=== PATIENT | male | born 1950 | race Caucasian/White ===

== ENCOUNTER 2019-02-26 17:28 | Observation (INO) | payer MEDICARE ==
[~2019-02-26] VITALS: Ht 185.4 cm; Wt 113.4 kg
[2019-02-26] MEDS ORDERED: SODIUM CHLORIDE 0.9% 1000ML 1,000 ML IV SCH (18:00)
[2019-02-26 18:53] LABS: BASOPHILS # (AUTO) 0.1 (0.0-0.1); BASOPHILS % 0.7 % (0.0-1.0); EOSINOPHILS # (AUTO) 0.2 (0.0-0.4); EOSINOPHILS % 2.5 % (0.0-6.0); HEMATOCRIT 44.5 % (38.2-49.6); HEMOGLOBIN 15.5 g/dL (14.0-18.0); LYMPHOCYTES # (AUTO) 2.6 (1.0-3.2); LYMPHOCYTES % 36.1 % (18.0-39.1); MEAN CORPUSCULAR HEMOGLOBIN 29.5 pg (28-32); MEAN CORPUSCULAR HGB CONC 34.8 g/dL (31-35); MEAN CORPUSCULAR VOLUME 84.6 fL (81-99); MONOCYTES # (AUTO) 0.6 (0.2-0.8); MONOCYTES % 7.7 % (4.4-11.3); NEUTROPHILS # (AUTO) 3.8 (2.1-6.9); NEUTROPHILS % 52.4 % (38.7-80.0); PLATELET COUNT 199 x10e3/uL (140-360); RED BLOOD COUNT 5.26 x10e6/uL (4.3-5.7); RED CELL DISTRIBUTION WIDTH 12.5 % (11.7-14.4)
--- NOTE | 2019-02-26 18:53 | Diagnostic Imaging Report ---
Examination: Single AP view of the chest. COMPARISON: None. INDICATION: Chest pain DISCUSSION: Lines/tubes: None. Lungs: The lungs are well inflated and clear. No pneumonia or pulmonary edema. Pleura: No pleural effusion or pneumothorax. Heart and mediastinum: The heart and the mediastinum are unremarkable. Bones and soft tissues: No acute bony abnormalities. IMPRESSION: 1. No acute cardiopulmonary abnormalities. Signed by: Dr. Tahir Matthews M.D. on 02/26/2019 6:49 PM
[2019-02-26 18:57] LABS: BILIRUBIN,URINE NEGATIVE (NEGATIVE); CLARITY,URINE SL CLOUDY (CLEAR); COLOR,URINE YELLOW (YELLOW); LEUKOCYTE ESTERASE ,URINE NEGATIVE (NEGATIVE); NITRITE,URINE NEGATIVE (NEGATIVE); PROTEIN,URINE DIPSTICK NEGATIVE (NEGATIVE); URINE UROBILINOGEN 0.2 mg/dL (0.2 - 1)
[2019-02-26 19:03] LABS: KETONES,URINE 2+ (NEGATIVE)
[2019-02-26 19:20] LABS: ALBUMIN 3.6 g/dL (3.5-5.0); CALCIUM 9.6 mg/dL (8.4-10.2); CREATININE, SERUM 1.42 mg/dL (0.72-1.25)
[2019-02-26 19:27] LABS: CREATINE KINASE MB 1.1 ng/mL (0-5.0)
[2019-02-26 19:44] LABS: INR 0.83; PROTHROMBIN TIME 11.9 seconds (11.9-14.5)
[2019-02-26 19:45] LABS: PARTIAL THROMBOPLASTIN TIME 26.4 seconds (23.8-35.5)
[2019-02-26] MEDS ORDERED: INSULIN REGULAR, HUMAN 100 UNIT/1 ML 3ML VIAL IV ONE (20:00)
[2019-02-26] MEDS ORDERED: ONDANSETRON HCL INJ 2MG/ML 2ML 2 MG/ML VIAL IV PRN (20:00)
[2019-02-26] MEDS ORDERED: DEXTROSE 50% SYRINGE 50 ML IV PRN (20:00)
[2019-02-26] MEDS ORDERED: INSULIN LISPRO 100 UNIT/1 ML 3ML VIAL SQ ONE (20:00)
[2019-02-26] MEDS ORDERED: SODIUM CHLORIDE 0.9% 1000ML 1,000 ML IV STA (20:05)
[2019-02-26] MEDS ORDERED: INSULIN LISPRO 100 UNIT/1 ML 3ML VIAL SQ SCH (21:00)
[2019-02-26] MEDS: SODIUM CHLORIDE 0.9% 1000ML 1,000 ML IV SCH (21:29)
--- OUTSIDE RECORDS SUMMARY | 2019-02-26 22:13 | XMS REPORT ---
Author Author [facility] Address Unknown Phone Unavailable Care Team Providers Care Flight Test Engineer Name Role Phone Tatianna MUNOZ Unavailable Unavailable Problems This patient has no known problems. Allergies, Adverse Reactions, Alerts This patient has no known allergies or adverse reactions. Medications This patient has no known medications. Results Test Description Test Time Test Comments Text Results Atomic Results Result Comments CHEST SINGLE (NOT PORTABLE) 2019-02-26 18:49:00 [facility] [address] [place] [address] Patient Name: REINIER GALDAMEZMerlyn Ren MR #: [id number] : 1950 Age/Sex: 68/M Req #: [id number] Adm Physician: Ordered by: ROBERT MUNOZ MD Report #: [id number] Location: ER Room/Bed: Procedure: [id number] DX/CHEST SINGLE (NOT PORTABLE) Exam Date: 02/26/19 Exam Time: 1840 REPORT STATUS: Signed Examination: Single AP view of the chest. CO MPARISON: None. INDICATION: Chest pain DISCUSSION: Lines/tubes: None. Lungs: The lungs are well inflated and clear. No pneumonia or pulmonary edema. Pleura: No pleural effusion or pneumothorax. Heart and mediastinum: The heart and the mediastinum are unremarkable. Bones and soft tissues: No acute bony abnormalities. IMPRESSION: 1. No acute cardiopulmonary abnormalities. Signed by: Dr. Nicole Liu M.D. on 02/26/2019 6:49 PM Dictated By: NICOLE LIU MD 46 Transcribed By: MANISHA on 02/26/191848 COPY TO: ROBERT MUNOZ MD
[2019-02-26 22:14] VITALS: BP 131/98
[2019-02-26 22:15] VITALS: BP 131/98
--- NOTE | 2019-02-26 22:15 | NUR ---
RECEIVED PATIENT FROM ED AT THIS TIME. PATIENT ARRIVED VIA WHEELCHAIR, AMBULATED INDEPENDENTLY TO BED. A&OX3. LUNG SOUNDS CLEAR. BOWEL SOUNDS ACTIVE. NO EDEMA NOTED. L HAND 20G IV ASYMPTOMATIC, INTACT, AND PATENT, NS RUNNING AT 125 ML/HR. AT BEDSIDE. VITALS STABLE. BED LOCKED IN LOWEST POSITION, SIDE RAILS UPX2, CALL LIGHT IN REACH.
[2019-02-26] MEDS ORDERED: GABAPENTIN300 MG PO (23:05)
[2019-02-26] MEDS ORDERED: LEVOTHYROXINE75 MCG PO (23:05)
[2019-02-26] MEDS ORDERED: FLOMAX0.4 MG PO (23:05)
[2019-02-26] MEDS ORDERED: FINASTERIDE5 MG PO (23:05)
[2019-02-27] VITALS (8 sets, daily range): BP systolic 99–141; BP diastolic 51–72
[2019-02-27 02:22] LABS: CREATINE KINASE 47 IU/L (30-200)
[2019-02-27 05:27] LABS: BASOPHILS # (AUTO) 0.1 (0.0-0.1); EOSINOPHILS # (AUTO) 0.3 (0.0-0.4); EOSINOPHILS % 5.1 % (0.0-6.0); HEMOGLOBIN 12.9 g/dL (14.0-18.0); LYMPHOCYTES # (AUTO) 2.9 (1.0-3.2); LYMPHOCYTES % 46.7 % (18.0-39.1); MEAN CORPUSCULAR HEMOGLOBIN 30.2 pg (28-32); MEAN CORPUSCULAR HGB CONC 34.9 g/dL (31-35); MEAN CORPUSCULAR VOLUME 86.7 fL (81-99); MONOCYTES # (AUTO) 0.5 (0.2-0.8); MONOCYTES % 8.4 % (4.4-11.3); NEUTROPHILS # (AUTO) 2.4 (2.1-6.9); NEUTROPHILS % 38.2 % (38.7-80.0); PLATELET COUNT 169 x10e3/uL (140-360); RED BLOOD COUNT 4.27 x10e6/uL (4.3-5.7); RED CELL DISTRIBUTION WIDTH 12.7 % (11.7-14.4)
[2019-02-27 05:51] LABS: CREATINE KINASE MB 0.9 ng/mL (0-5.0)
[2019-02-27 06:09] LABS: ALANINE AMINOTRANSFERASE 20 IU/L (0-55); ALBUMIN 2.7 g/dL (3.5-5.0); ALBUMIN/GLOBULIN RATIO 1.1 (0.8-2.0); ALKALINE PHOSPHATASE 69 IU/L (40-150); ANION GAP 12.5 mmol/L (8-16); BLOOD UREA NITROGEN 12 mg/dL (7-26); BUN/CREATININE RATIO 11 (6-25); CARBON DIOXIDE 22 mmol/L (22-29); CHLORIDE 104 mmol/L (98-107); CREATININE, SERUM 1.07 mg/dL (0.72-1.25); EST GLOMERULAR FILTRATION RATE > 60 ML/MIN (60-); GLUCOSE 252 mg/dL (74-118); POTASSIUM 3.5 mmol/L (3.5-5.1); SODIUM 135 mmol/L (136-145)
[2019-02-27] MEDS: SODIUM CHLORIDE 0.9% 1000ML 1,000 ML IV SCH ×3 (06:29→20:30)
--- NOTE | 2019-02-27 07:00 | NUR ---
RECEIVED PATIENT RESTING IN BED NO S/S OF DISTRESS. BED LOW, WHEELS LOCKED, SIDE RAILS X2. CALL LIGHT IN REACH, AT BEDSIDE. WILL CONTINUE TO MONITOR PATIENT.
[2019-02-27] MEDS: INSULIN LISPRO 100 UNIT/1 ML 3ML VIAL SQ SCH ×4 (08:00→20:30)
--- NOTE | 2019-02-27 10:07 | NUR ---
PATIENT A/O X3, EVEN RESPIRATIONS ON RA. LUNG SOUNDS CLEAR TO AUSCULTATION. BOWEL SOUNDS PRESENT X4. LEFT HAND 20 GAUGE IV WITH NS @ 125 CC/HR. IV INTACT AND PATENT. SKIN INTACT NO EDEMA. PATIENT AMBULATES INDEPENDENTLY. AT BEDSIDE. NO PAIN AT THIS TIME. CALL LIGHT IN REACH WILL CONTINUE TO MONITOR PATIENT.
[2019-02-27 15:01] LABS: CREATINE KINASE 46 IU/L (30-200)
--- NOTE | 2019-02-27 16:56 | History and Physical ---
PRIMARY CARE PHYSICIAN: Dr. Agarwal with [facility]. CHIEF COMPLAINT: Increased urination and thirst. HISTORY OF PRESENT ILLNESS: This is a 68-year-old male with past medical history of asthma, hypothyroidism, DVT, spinal stenosis, and overactive bladder, presented to the ER with complaints of frequent urination and thirst with dry mouth, times now 8 weeks. He reports had gone to the urologist for overactive bladder, was started on oxybutynin, which did not resolve his symptoms. He had gone to follow up again with his urologist about two weeks ago, who changed his oxybutynin to Myrbetriq, which he reports did not resolve his symptoms at all. He continue to have generalized weakness, loss of appetite, weight loss, and very dry mouth. Last night, when she checked his blood sugar was 494. Early this morning upon arrival to the ER, his blood sugar was 558, was admitted for further evaluation. We will admit the patient for further workup. PAST MEDICAL HISTORY: 1. Asthma. 2. Hypothyroidism. 3. DVT, PE. 4. Spinal stenosis. 5. BPH. PAST SURGICAL HISTORY: He had tonsillectomy at the age of 7. FAMILY MEDICAL HISTORY: Father had multiple cardiac disease. Mother had diabetes and brother also had diabetes. SOCIAL HISTORY: He is a former smoker, quit about 30 years ago. He denies any illicit drug use or alcohol use. He lives with . ALLERGIES: NO KNOWN ALLERGIES. REVIEW OF SYSTEMS: GENERAL: No acute distress. HEENT: No head trauma. No sore throat or mouth. LUNGS: No shortness of breath or cough. CARDIOVASCULAR: No chest pain or palpitations. GI: No nausea or vomiting. Reports poor appetite. NEURO: No focal weakness. Reports generalized weakness. MUSCULOSKELETAL: No edema. SKIN: Dry and intact. PHYSICAL EXAMINATION: VITAL SIGNS: Temperature 96.0, pulse is 66, respirations 15, blood pressure 106/51, and pulse ox is 95% on room air. GENERAL: No acute distress. HEENT: Normocephalic, atraumatic. LUNGS: Clear to auscultation. CARDIOVASCULAR: Regular rate and rhythm. GI: Nontender and soft. NEURO: Alert, awake, and oriented x3. MUSCULOSKELETAL: Active ROM. No bilateral lower extremity edema noted. SKIN: Dry and intact. LABORATORY DATA: Sodium 125. Troponins negative. Creatinine 1.47. BUN is 18. CBC within normal limits. PT 11.9, INR 0.83, APTT 26.4. Urine is cloudy yellow with 2+ ketones, no leukocytes, or bacteria noted. IMAGING: Chest x-ray, no acute abnormalities noted. IMPRESSION AND PLAN: 1. New onset of diabetes type 2, uncontrolled. Hemoglobin A1c is 14.9. The patient was started on sliding scale insulin. We will also start him on metformin p.o. b.i.d. We will consult Dietary for diabetic education. 2. Hyponatremia. Sodium 125 upon arrival, likely due to hyperglycemia. We will continue with IV fluid hydration and recheck labs in a.m. 3. Acute kidney injury with creatinine of 1.4, likely due to frequent urination and again hyperglycemia. We will continue with IV fluid hydration and recheck BMP in a.m. 4. History of asthma. We will continue with albuterol as needed, currently stable. 5. Hypothyroidism. We will continue his home dose of Synthroid 150 mcg daily. 6. History of deep venous thrombosis. He is no longer on anticoagulation. Completed 9 months of Xarelto treatment. 7. Spinal stenosis. Aware and takes gabapentin as needed. 8. History of benign prostatic hyperplasia. We will continue his Flomax. PLAN: We will continue IV fluids. Provide diabetic education. Start on metformin. Repeat labs in a.m. and anticipate discharge home tomorrow. Dictated by BELLO Yin Barbara Peña MD MY/MODL /[id number]
[2019-02-27] MEDS: METFORMIN HCL 500 MG TAB PO SCH (16:57)
--- NOTE | 2019-02-27 17:17 | NUR ---
Nutrition Screen Note RD Recommendation for Physician: - Continue current diet - Consider outpatient CDE referral upon discharge for additional DM education Plan of Care: RD following, monitoring for tolerance and adequacy - Diet education provided 02/27 Nutrition reason for involvement: Dx screen- new onset DM, MD consult- new onset DM Primary Diagnose(s): new onset DM2 PMH: hypothyroidism Ht: 73 in Wt: 250 lb BMI: 33 kg/m2 IBW: [address] Assessment: (02/27) 68 YOM admitted for new onset DM2 dx, seen today for DM diet education per MD consult and dx screen. Pt and educated on DM diet emphasizing CHO sources, CHO serving sizes, foods to avoid, meal planning, and consistent po intake. Education materials provided and all questions and concerns addressed at time of visit. Pt reports good appetite and intake, reports no wt loss or GI distress. Chart reviewed. Labs and meds reviewed. Will monitor and continue to follow. Current Diet: 1800 ADA Malnutrition Evaluation (02/27) The patient does not meet criteria for a specified degree of malnutrition at this time. Will re-evaluate at follow-up as appropriate. Diet Education Needs Assessment: Diet education indicated, per agreeable. Learner(s): pt and Barriers: none Cultural/Language Modifications: none Readiness: eager Method: handouts, discussion Topics: DM2 nutrition therapy, CHO counting, label reading Understanding/Compliance: good Nutrition Care Level: Low Signed: Darcy Burgos RD, LD, [facility]
[2019-02-27] MEDS ORDERED: GABAPENTIN 300 MG CAP PO SCH (21:00)
[2019-02-27] MEDS ORDERED: FINASTERIDE 5 MG TAB PO SCH (21:00)
[2019-02-27] MEDS ORDERED: TAMSULOSIN HCL 0.4 MG CAP PO SCH (21:00)
[2019-02-28 00:30] VITALS: BP 121/61
[2019-02-28] MEDS: SODIUM CHLORIDE 0.9% 1000ML 1,000 ML IV SCH ×2 (03:07→13:54)
[2019-02-28 04:00] VITALS: BP 113/55
[2019-02-28 05:37] LABS: BASOPHILS # (AUTO) 0.1 (0.0-0.1); BASOPHILS % 0.9 % (0.0-1.0); EOSINOPHILS # (AUTO) 0.3 (0.0-0.4); EOSINOPHILS % 4.8 % (0.0-6.0); HEMATOCRIT 37.9 % (38.2-49.6); HEMOGLOBIN 13.2 g/dL (14.0-18.0); LYMPHOCYTES # (AUTO) 2.5 (1.0-3.2); LYMPHOCYTES % 42.3 % (18.0-39.1); MEAN CORPUSCULAR HEMOGLOBIN 30.1 pg (28-32); MEAN CORPUSCULAR HGB CONC 34.8 g/dL (31-35); MEAN CORPUSCULAR VOLUME 86.3 fL (81-99); MONOCYTES # (AUTO) 0.5 (0.2-0.8); MONOCYTES % 7.9 % (4.4-11.3); NEUTROPHILS # (AUTO) 2.5 (2.1-6.9); NEUTROPHILS % 43.4 % (38.7-80.0); PLATELET COUNT 151 x10e3/uL (140-360); RED BLOOD COUNT 4.39 x10e6/uL (4.3-5.7); RED CELL DISTRIBUTION WIDTH 12.6 % (11.7-14.4)
[2019-02-28 05:51] LABS: ANION GAP 12.7 mmol/L (8-16); BLOOD UREA NITROGEN 9 mg/dL (7-26); BUN/CREATININE RATIO 9 (6-25); CALCIUM 8.2 mg/dL (8.4-10.2); CARBON DIOXIDE 19 mmol/L (22-29); CHLORIDE 108 mmol/L (98-107); CREATININE, SERUM 0.97 mg/dL (0.72-1.25); EST GLOMERULAR FILTRATION RATE > 60 ML/MIN (60-); GLUCOSE 217 mg/dL (74-118); POTASSIUM 3.7 mmol/L (3.5-5.1); SODIUM 136 mmol/L (136-145)
[2019-02-28] MEDS ORDERED: LEVOTHYROXINE SODIUM 75 MCG TAB PO SCH (06:00)
--- NOTE | 2019-02-28 06:14 | NUR ---
The patient is laying comfortably on his right side. Easily aroused. Respirations are even and unlabored. IV is patent and infusing without difficulty. HOB slightly elevated, wheels locked and call light within reach.
[2019-02-28 07:25] VITALS: BP 127/67
[2019-02-28] MEDS ORDERED: ONDANSETRON HCL 4 MG ORAL DISINTEGRATING TAB PO PRN (08:15)
[2019-02-28] MEDS: METFORMIN HCL 500 MG TAB PO SCH (08:38)
[2019-02-28 08:45] VITALS: BP 127/67
[2019-02-28] MEDS: INSULIN LISPRO 100 UNIT/1 ML 3ML VIAL SQ SCH ×2 (08:52→13:56)
[2019-02-28 12:29] VITALS: BP 138/78
[2019-02-28] MEDS ORDERED: METFORMIN HCL500 MG PO (12:47)
[2019-02-28 15:43] VITALS: BP 137/74
--- NOTE | 2019-03-01 12:46 | Discharge Summary ---
PRIMARY CARE DOCTOR: Dr. Agarwal with [facility]. CHIEF COMPLAINT: Increased urination and thirst. FINAL DIAGNOSES: 1. New onset of uncontrolled diabetes type 2. 2. Hyponatremia. 3. Acute kidney injury. 4. History of asthma. 5. Hypothyroidism. 6. History of deep vein thrombosis. 7. Spinal stenosis. 8. Benign prostatic hypertrophy. CONSULTANTS: None. PROCEDURES: None. HISTORY: Per HPI. HOSPITAL COURSE: This is a 68-year-old male, who presented to the ER with complaints of frequent urination and dry mouth. He was initially started on oxybutynin for overactive bladder, which did not help with the symptoms. He was then changed to Myrbetriq, which improved a little bit afterwards and then continued to worsen. He reports losing about 30 pounds total within the past 6 to 8 weeks. The night before he presented to the ER, checked his blood sugar and was 494. When they arrived to the ER, it was 558. Hemoglobin A1c was 14.9, so he was started on IV fluid hydration for JORGE and hyponatremia. He was started on sliding scale insulin. Diabetic education provided and started on metformin. PHYSICAL EXAMINATION: VITAL SIGNS: Temperature 96.3, pulse is 78, respirations 16, blood pressure 138/78, and pulse ox 97% on room air. GENERAL: No acute distress. HEENT: Normocephalic and atraumatic. LUNGS: Clear to auscultation. CARDIOVASCULAR: Regular rate and rhythm. GI: Nontender and soft. NEUROLOGIC: Alert, awake, and oriented x3. MUSCULOSKELETAL: Active ROM. No bilateral lower extremity edema noted. SKIN: Dry and intact. CONDITION AT DISCHARGE: Improved and stable. DISCHARGE MEDICATIONS: Please see discharge medication list. DISCHARGE FOLLOWUP: Follow up with PCP, Dr. Agarwal at [facility] and urologist at [facility] in 1 to 2 weeks. Total time of discharge is 32 minutes. Dictated by BELLO Yin Barbara Peña MD MY/MODL /[id number] cc: Dr[facility]
== END 2019-02-28 16:30 | disposition home or self-care (01) ==
LOC: ER 17:28 → ERHOLD 22:10 → MED/SURG 22:15
PROVIDERS: ADMIT Internal Medicine; ATTEND Internal Medicine
DX: E11.65 Type 2 diabetes mellitus with hyperglycemia (principal); E87.1 Hypo-osmolality and hyponatremia; N17.9 Acute kidney failure, unspecified; J45.909 Unspecified asthma, uncomplicated; E03.9 Hypothyroidism, unspecified; Z86.718 Personal history of other venous thrombosis and embolism; M48.00 Spinal stenosis, site unspecified; N40.0 Benign prostatic hyperplasia without lower urinary tract symptoms; Z82.49 Family history of ischemic heart disease and other diseases of the circulatory system; Z83.3 Family history of diabetes mellitus; Z87.891 Personal history of nicotine dependence; N32.81 Overactive bladder; Z79.84 Long term (current) use of oral hypoglycemic drugs
CPT/HCPCS: 36415 ×2; 36558; 36830; 71045; 80048; 80053 ×2; 80061; 81001; 82550 ×2; 82553 ×2; 82948 ×3; 83036; 84484 ×2; 85025 ×3; 85610; 85730; 93005; 96361; 99284; G0378 ×3; J7030 ×3; 96360

== ENCOUNTER 2020-03-24 13:57 | Emergency (ER) | payer MEDICARE ==
[~2020-03-24] VITALS: Ht 185.4 cm; Wt 113.4 kg
[~2020-03-24 13:57] MED LIST: FINASTERIDE5 MG PO; FLOMAX0.4 MG PO; GABAPENTIN300 MG PO; LEVOTHYROXINE75 MCG PO; METFORMIN HCL500 MG PO
--- NOTE | 2020-03-24 14:10 | Emergency Department Note ---
History of Present Illnes History of Present Illness Chief Complaint: finger pain History of Present Illness This is a 69 year old male, with a history of NIDDM, hypothyroidism, asthma, BPH, and back pain, who presents for evaluation of a laceration of the tip of the right middle finger. Patient was apparently using a table saw to cut some wood, holding the wood with the right hand, when he inadvertently cut the tip of the right middle finger with the saw blade, as he was pushing the wood up to the blade to be cut. Patient immediately stopped, cleaned the wound using Hibiclens soap, applied pressure to the wound, and then wrapped the finger, so that he could come here for evaluation. This occurred just prior to arrival. Patient complains of mild pain of the distal aspect of the right finger. Some of the distal nail was cut off by the saw blade, but there does not appear to be any soft tissue defect. There is no bleeding of the fingernail or nailbed. Patient's immunizations are up-to-date Historian: Patient Arrival Mode: Car Additional Treatment DIRECTOR OF NUCLEAR MEDICINE: cleaned wound with Hibiclens Vice President Payer Required: No Onset (how long ago): minute(s) (30) Location: distal aspect of right middle finger Quality: mild pain Radiation: Reports non-radiation Severity: mild Onset quality: sudden Duration (how long): hour(s) (0.5) Timing of current episode: constant Progression: unchanged Chronicity: new Context: Reports trauma/injury (see HPI) Relieving factors: none Exacerbating factors: none Associated symptoms: Denies fever/chills Treatments prior to arrival: none Risk factors: NIDDM Past Medical/Family History Physician Review I have reviewed the patient's past medical and family history. Any updates have been documented here. Past Medical History Recent Fever: No Clinical Suspicion of Infectio: No Past Medical History: Asthma, Hypothyroidism, DVT/PE, Chronic Back Pain Other Medical History: H SPINAL STENOSIS DVT LLE Past Surgical History: T&A Social History Smoking Cessation: Never Smoker Alcohol Use: None Any Illegal Drug Use: No TB Exposure/Symptoms: No Physically hurt or threatened: No Other Last Tetanus: UTD Any Pre-Existing Lines (PICC,: No Is patient up to date on immun: Yes Review of Systems Review of Systems Constitutional: Denies chills, Denies fever EENTM: Reports no symptoms Cardiovascular: Denies chest pain, Denies palpitations Respiratory: Denies cough, Denies dyspnea Gastrointestinal: Denies nausea, Denies vomiting Genitourinary: Reports no symptoms Musculoskeletal: Reports other (laceration of tip of right middle finger) Integumentary: Denies change in color, Denies rash Neurological: Denies numbness, Denies paresthesia, Denies tingling Psychological: Reports no symptoms Endocrine: Reports no symptoms Hematological/Lymphatic: Reports no symptoms Review of other systems: All other systems negative Physical Exam Related Data Allergies: Coded Allergies: No Known Allergies (Unverified , 02/26/19) Vital signs reviewed: Yes Physical Exam CONSTITUTIONAL Constitutional: Present well-developed, Present well-nourished; Absent distressed, Absent ill appearing HENT HENT: Present normocephalic, Present atraumatic, Present oropharynx clear/moist, Present nose normal; Absent nasal congestion, Absent rhinorrhea HENT L/R: Present left ext ear normal, Present right ext ear normal EYES Eyes: Reports PERRL, Reports conjunctivae normal NECK Neck: Present ROM normal; Absent cervical adenopathy PULMONARY Pulmonary: Present effort normal, Present breath sounds normal; Absent rhonchi CARDIOVASCULAR Cardiovascular: Present regular rhythm, Present heart sounds normal, Present capillary refill normal, Present normal rate; Absent murmur GASTROINTESTINAL Abdominal: Present soft, Present nontender, Present bowel sounds normal; Absent guarding, Absent rebound GENITOURINARY Genitourinary: Present exam deferred SKIN Skin: Present warm, Present dry, Present other (0.75 mm vertical lac on distal tip of right middle finger, well approximated with no active bleeding, wound is closed and not gaping; no visible tendon or bone, FROM; portion of distal nail is missing, without damage to the nail bed. ) MUSCULOSKELETAL NEUROLOGICAL Neurological: Present alert, Present oriented x 3, Present no gross motor or sensory deficits, Present sensory deficit; Absent cranial nerve deficit PSYCHOLOGICAL Psychological: Present mood/affect normal, Present judgement normal Assessment & Plan Medical Decision Making MDM - Wound soaked and cleaned in Betadine. The wound is not bleeding or easily opened, so no sutures were applied. The wound margin was also a bit irregular, and there was no active bleeding of the wound. Right radial pulse intact. This will also allow any drainage from the wound. - Keep the current dressing in place for 24 hours, and then remove, gently wash with antibacterial soap and water, dry, and then apply either bacitracin, triple antibiotic ointment, or Neosporin to the wound, and then cover. Repeat this twice daily until healed. - RICE, and keep RUE elevated to the level of the heart. - Antibiotics were prescribed, due to patient's history of diabetes. - Watch closely for any signs of infection including increased pain, swelling, redness, drainage, or fever, and follow up immediately. - He may take Aleve, as needed for pain, per package instructions. Assessment & Plan Final Impression: (1) Laceration of finger (2) Hypothyroidism (3) Asthma Depart Disposition: HOME, SELF-half-way Meds Active Scripts Cephalexin (CEPHALEXIN) 500 Mg Capsule, 500 MG PO TID for infection for 10 Days, #30 CAP 0 Refills Prov:BRIAN TRAN MD 03/24/20 Metformin Hcl (METFORMIN HCL) 500 Mg Tablet, 500 MG PO BIDWM for 30 Days Prov:MOUSTAPHA HOOD NP 02/28/19 Reported Medications Levothyroxine Sodium (LEVOTHYROXINE SODIUM) 75 Mcg Tablet, 150 MCG PO DAILY, #30 TAB 02/26/19 Tamsulosin Hcl* (FLOMAX*) 0.4 Mg Cap, 0.4 MG PO HS, #30 CAP 02/26/19 Finasteride (FINASTERIDE) 5 Mg Tablet, 5 MG PO HS, #30 TAB 02/26/19 Gabapentin (GABAPENTIN) 300 Mg Capsule, 300 MG PO HS, #60 CAP 02/26/19 BRIAN TRAN MD Mar 24, 2020 14:10
[2020-03-24] MEDS ORDERED: CEPHALEXIN500 MG PO (14:46)
--- NOTE | 2020-03-24 14:46 | Diagnostic Imaging Report ---
EXAMINATION: FINGER RT - HOPD INDICATION: Trauma COMPARISON: None FINDINGS: Soft tissue irregularity at the distal tip of the long digit. No underlying fracture or dislocation. Alignment is anatomic. No substantial degenerative change. IMPRESSION: Soft tissue laceration at the distal tip of the third digit. No underlying acute osseous injury. Signed by: Cecilio Miranda MD on 03/24/2020 2:42 PM
--- OUTSIDE RECORDS SUMMARY | 2020-03-25 19:42 | XMS REPORT | Continuity of Care Document ---
Author Author [facility] t Organization [facility] Address [address] [place] [address] Phone Unavailable Care Team Providers Care Bass Viol Repairer Name Role Phone NONSTAFF PCP Unavailable Eusebia TRAN Attphys Unavailable Tatianna MUNOZ Attphys Unavailable Payers Payer Name Policy Type Policy Number Effective Date Expiration Date Tatianna Caro Care Medicare Advantage [id number] 2017 00:0 0:00 [facility] Problems Condition Name Condition Details Condition Category Status Onset Date Resolution Date Last Treatment Date Treating Clinician Comments Source New onset type 2 diabetes mellitus New onset type 2 diabetes cathy litus Problem Active [facility] Allergies, Adverse Reactions, Alerts This patient has no known allergies or adverse reactions. Medications Ordered Medication Name Filled Medication Name Start Date Stop Da te Current Medication? Ordering Clinician Indication Dosage Frequency Signature (SIG) Comments Components Source Metformin Hcl 500 Mg Tablet Metformin Hcl 500 Mg Tablet 2019-02-28 00:00:00 Yes Poppy [employer] System Administration Advisor 500 Twice Daily With Meals [facility] Finasteride 5 Mg Tablet Finasteride 5 Mg Tablet Yes 5 Bedtime [facility] Gabapentin 300 Mg Capsule Gabapentin 300 Mg Capsule Yes 300 Bedtime [facility] Levothyroxine Sodium 75 Mcg Tablet Levothyroxine Sodium 75 Mcg Tablet Yes 150 Daily [facility] Tamsulosin Hcl (Flomax*) 0.4 Mg Cap Tamsulosin Hcl (Flomax*) 0.4 Mg C ap Yes .4 Bedtime [facility] Procedures Procedure Date / Time Performed Performing Clinician [facility] e X-ray of chest, single view 2019-02-26 00:00:00 ROBERT MUNOZ [facility] Encounters Start Date/Time End Date/Time Encounter Type Admission Type Attendi Clinicians Care Facility Care Department Encounter ID Source 2019-02-26 22:10:00 2019-02-28 16:30:00 Discharged Inpatient (obs) [address] [facility] [id number] [facility] Results Test Description Test Time Test Comments Results Result Comments Source FINGER RT - HOPD 2020-03-24 14:35:00 [facility] : 1950 Sex: M [place] [address] Patient Name: NATALIIA GALDAMEZ I MR #: [id number] : 1950 Age/Sex: 69/M Req #: [id number] [facility] Physician: Ordered by: BRIAN TRAN MD Report #: [id number] Location: [facility] Room/Bed: Procedure: [id number] HOPD/FINGER RT - HOPD Exam Date: 03/24/20 Exam Time: 1424 REPORT STATUS: Signed EXAMINATION: FINGER RT - HOPD INDICATION: Trauma COMPARISON: None FINDINGS: Soft tissue irregularity at the distal tip of the long digit. No underlying fracture or dislocation. Alignment is anatomic. No substantial degenerative change. IMPRESSION: Soft tissue laceration at the distal tip of the third digit. No underlying acute osseous injury. Signed by: Malissa Barber MD on 03/24/2020 2:42 PM Dictated By: MALISSA BARBER MD 41 Transcribed By: MANISHA on 03/24/201441 COPY TO: BRIAN TRAN MD Sodium Level 2019-02-28 05:52:00 Test Item Sodium Level (test code = 2951-2) 136 136-145 [facility]assium Fagdh2892-99-30 05:52:00* Test Item Value Reference Range Interpretation Comments Potassium Level (test code = 2823-3) 3.7 3.5-5.1 [facility] LakeChloride Lwogs8635-91-14 05:52:00* Test Item Value Reference Range Interpretation Comments Chloride Level (test code = 2075-0) 108 98-107 H [facility] LakeCarbon Dioxide Fmewz6161-22-64 05:52:00* Test Item Value Reference Range Interpretation Comments Carbon Dioxide Level (test code = 2028-9) 19 22-29 L [facility] LakeAnion Tkx8237-25-84 05:52:00* Test Item Value Reference Range Interpretation Comments Anion Gap (test code = 34456-1) 12.7 8-16 [facility] LakeBlood Urea Noohdsmm0563-59-18 05:52:00* Test Item Value Reference Range Interpretation Comments Blood Urea Nitrogen (test code = 3094-0) 9 7-26 [facility] LakeCreatinine2019-10-11 05:52:00* Test Item Value Reference Range Interpretation Comments Creatinine (test code = 2160-0) 0.97 0.72-1.25 [facility] LakeBUN/Creatinine Rglas9648-49-91 05:52:00* Test Item Value Reference Range Interpretation Comments BUN/Creatinine Ratio (test code = 3097-3) 9 6-25 [facility] LakeEstimat Glomerular Filtration Rate 2019-02-28 05:52:00* Test Item Value Reference Range Interpretation Comments Estimat Glomerular Filtration Rate (test code = 161325383) > 60 >60 Ranges were taken from the National Kidney Disease Education Program and the [facility] literature.Reference ranges:60 or greater: Ntffzw86-71 ( for 3 consecutive months): Chronic kidney disease 15 or less: Kidney failureHCA [facility] Healthcare Clear LakeGlucose Nqcpu9212-67-17 05:52:00* Test Item Value Reference Range Interpretation Comments Glucose Level (test code = XKD0933) 217 74-118 H [facility] LakeCalcium Rvaal4619-05-53 05:52:00* Test Item Value Reference Range Interpretation Comments Calcium Level (test code = 63426-9) 8.2 8.4-10.2 L [facility] LakeWhite Blood Iuspl7734-07-74 05:40:00* Test Item Value Reference Range Interpretation Comments White Blood Count (test code = 6690-2) 5.79 4.8-10.8 [facility] LakeRed Blood Mkusu8652-63-91 05:40:00* Test Item Value Reference Range Interpretation Comments Red Blood Count (test code = 789-8) 4.39 4.3-5.7 [facility] LakeHemoglobin2019-10-11 05:40:00* Test Item Value Reference Range Interpretation Comments Hemoglobin (test code = 70721-0) 13.2 14.0-18.0 L [facility] LakeHematocrit2019-10-11 05:40:00* Test Item Value Reference Range Interpretation Comments Hematocrit (test code = 4544-3) 37.9 38.2-49.6 L [facility] LakeMean Corpuscular Zxmmps9042-78-35 05:40:00* Test Item Value Reference Range Interpretation Comments Mean Corpuscular Volume (test code = 787-2) 86.3 81-99 [facility] LakeMean Corpuscular Eozodtiear9280-11-35 05:40:00* Test Item Value Reference Range Interpretation Comments Mean Corpuscular Hemoglobin (test code = 785-6) 30.1 28-32 [facility] LakeMean Corpuscular Hemoglobin Concent 2019-02-28 05:40:00* Test Item Value Reference Range Interpretation Comments Mean Corpuscular Hemoglobin Concent (test code = 786-4) 34.8 31-35 [facility] LakeRed Cell Distribution Jnxgu1029-61-69 05:40:00* Test Item Value Reference Range Interpretation Comments Red Cell Distribution Width (test code = 69389-8) 12.6 11.7 -14.4 [facility] LakePlatelet Hkysj9102-62-76 05:40:00* Test Item Value Reference Range Interpretation Comments Platelet Count (test code = 777-3) 151 140-360 [facility] LakeNeutrophils (%) (Auto)2019-02-28 05:40:00 * Test Item Value Reference Range Interpretation Comments Neutrophils (%) (Auto) (test code = 21686-8) 43.4 38.7-80.0 [facility] LakeLymphocytes (%) (Auto)2019-02-28 05:40:00 * Test Item Value Reference Range Interpretation Comments Lymphocytes (%) (Auto) (test code = 736-9) 42.3 18.0-39.1 H [facility] LakeMonocytes (%) (Auto)2019-02-28 05:40:00* Test Item Value Reference Range Interpretation Comments Monocytes (%) (Auto) (test code = 5905-5) 7.9 4.4-11.3 [facility] LakeEosinophils (%) (Auto)2019-02-28 05:40:00 * Test Item Value Reference Range Interpretation Comments Eosinophils (%) (Auto) (test code = 713-8) 4.8 0.0-6.0 [facility] LakeBasophils (%) (Auto)2019-02-28 05:40:00* Test Item Value Reference Range Interpretation Comments Basophils (%) (Auto) (test code = 706-2) 0.9 0.0-1.0 [facility] LakeIM GRANULOCYTES %2019-02-28 05:40:00* Test Item Value Reference Range Interpretation Comments IM GRANULOCYTES % (test code = IM GRANULOCYTES %) 0.7 0.0- 1.0 [facility] LakeNeutrophils # (Auto)2019-02-28 05:40:00* Test Item Value Reference Range Interpretation Comments Neutrophils # (Auto) (test code = 751-8) 2.5 2.1-6.9 [facility] LakeLymphocytes # (Auto)2019-02-28 05:40:00* Test Item Value Reference Range Interpretation Comments Lymphocytes # (Auto) (test code = 29598-4) 2.5 1.0-3.2 [facility] LakeMonocytes # (Auto)2019-02-28 05:40:00* Test Item Value Reference Range Interpretation Comments Monocytes # (Auto) (test code = 742-7) 0.5 0.2-0.8 [facility] LakeEosinophils # (Auto)2019-02-28 05:40:00* Test Item Value Reference Range Interpretation Comments Eosinophils # (Auto) (test code = 711-2) 0.3 0.0-0.4 [facility] LakeBasophils # (Auto)2019-02-28 05:40:00* Test Item Value Reference Range Interpretation Comments Basophils # (Auto) (test code = 704-7) 0.1 0.0-0.1 [facility] LakeAbsolute Immature Granulocyte (auto 2019-02-28 05:40:00* Test Item Value Reference Range Interpretation Comments Absolute Immature Granulocyte (auto (katarzyna t code = Absolute Immature Granulocyte (auto) 0.04 0-0.1 [facility] LakeBedside Tamqfay6958-56-82 02:52:00* Test Item Value Reference Range Interpretation Comments Bedside Glucose (test code = 08358-1) 251 70-120 H Meter ID: [id number] [facility] Healthcare Clear LakeCreatine Kinase MB 2019-02-27 15:08:00* Test Item Value Reference Range Interpretation Comments Creatine Kinase MB (test code = 18917-4) 0.80 0-5.0 [facility] LakeTroponin [id number] 15:08:00* Test Item Value Reference Range Interpretation Comments Troponin I (test code = BNQ3667) < 0.001 0-0.300 [facility] LakeCreatine Yoramn7466-76-61 15:02:00* Test Item Value Reference Range Interpretation Comments Creatine Kinase (test code = 2157-6) 46 30-200 [facility] LakeHemoglobin A1c Rbxhdzk9833-86-83 11:18:00 * Test Item Value Reference Range Interpretation Comments Hemoglobin A1c Percent (test code = Hemoglobin A1c Percent) 14.9 4.0-7.0 H [facility] LakeTriglycerides Jedsi4942-75-07 11:06:00* Test Item Value Reference Range Interpretation Comments Triglycerides Level (test code = 2571-8) 293 0-149 H [facility] LakeCholesterol Qvumm2641-74-05 11:06:00* Test Item Value Reference Range Interpretation Comments Cholesterol Level (test code = 2093-3) 191 0-199 Less than 200 mg/dL Low Gcyi519 - 239 mg/dL Borderline Frve811 m g/dl and greater High Risk [facility] LakeLDL Askckojrfdb5661-64-81 11:06:00* Test Item Value Reference Range Interpretation Comments LDL Cholesterol (test code = 2089-1) 100 60-130 [facility] LakeHDL Hojbhnbfnbf9361-98-13 11:06:00* Test Item Value Reference Range Interpretation Comments HDL Cholesterol (test code = 2085-9) 32 40-60 L [facility] LakeCholesterol/HDL Rxtwi9538-64-70 11:06:00 * Test Item Value Reference Range Interpretation Comments Cholesterol/HDL Ratio (test code = 9830-1) 6.0 3.9-4.7 H [facility] LakeTotal Bdjbbjeom6099-54-56 06:11:00* Test Item Value Reference Range Interpretation Comments Total Bilirubin (test code = 1975-2) 0.4 0.2-1.2 [facility] LakeAspartate Amino Transf (AST/SGOT) 2019-02-27 06:11:00* Test Item Value Reference Range Interpretation Comments Aspartate Amino Transf (AST/SGOT) (test code = Aspartate Amino Transf (AST/SGOT)) 17 5-34 [facility] LakeAlanine Aminotransferase (ALT/SGPT) 2019-02-27 06:11:00* Test Item Value Reference Range Interpretation Comments Alanine Aminotransferase (ALT/SGPT) (test code = 1742-6) 20 0-55 [facility] LakeTotal Cbhrpkq6759-27-60 06:11:00* Test Item Value Reference Range Interpretation Comments Total Protein (test code = 2885-2) 5.2 6.5-8.1 L [facility] LakeAlbumin2019-10-10 06:11:00* Test Item Value Reference Range Interpretation Comments Albumin (test code = 1751-7) 2.7 3.5-5.0 L [facility] LakeGlobulin2019-10-10 06:11:00* Test Item Value Reference Range Interpretation Comments Globulin (test code = 37986-1) 2.5 2.3-3.5 [facility] LakeAlbumin/Globulin Oqrfc8300-24-75 06:11:00 * Test Item Value Reference Range Interpretation Comments Albumin/Globulin Ratio (test code = 1759-0) 1.1 0.8-2.0 [facility] LakeAlkaline Wtzeylodeem3337-16-58 06:11:00* Test Item Value Reference Range Interpretation Comments Alkaline Phosphatase (test code = 6768-6) 69 40-150 [facility] LakeProthrombin Seoz6074-90-45 19:46:00* Test Item Value Reference Range Interpretation Comments Prothrombin Time (test code = 5902-2) 11.9 11.9-14.5 [facility] LakeProthromb Time International Ratio 2019-02-26 19:46:00* Test Item Value Reference Range Interpretation Comments Prothromb Time International Ratio (test code = 6301-6) 0.83 Oral Anticoagulant Therapy INR Values:1. Low Intensity Therapy 1.5 - 2.02 . Moderate Intensity Therapy 2.0 - 3.03. High Intensity Therapy(1) 2.5 - 3. 54. High Intensity Therapy(2) 3.0 - 4.05. Panic Value INR > 5.0 [facility] LakeActivated Partial Thromboplast Time 2019-02-26 19:46:00* Test Item Value Reference Range Interpretation Comments Activated Partial Thromboplast Time (test code = 04225-2) 26.4 23.8-35.5 [facility] LakeUrine SFE8893-13-42 19:17:00* Test Item Value Reference Range Interpretation Comments Urine WBC (test code = 5821-4) NONE 0-5 [facility] LakeUrine OMO2862-54-69 19:17:00* Test Item Value Reference Range Interpretation Comments Urine RBC (test code = 47454-8) NONE 0-5 [facility] LakeUrine Opnojliw9685-81-07 19:17:00* Test Item Value Reference Range Interpretation Comments Urine Bacteria (test code = 31141-0) NONE NONE [facility] LakeUrine Epithelial Zgnjh9241-90-19 19:17:00 * Test Item Value Reference Range Interpretation Comments Urine Epithelial Cells (test code = 38884-3) NONE NONE [facility] LakeUrine Hpkmt4481-24-49 19:03:00* Test Item Value Reference Range Interpretation Comments Urine Color (test code = 5778-6) YELLOW YELLOW [facility] LakeUrine Ejyrazj7960-28-65 19:03:00* Test Item Value Reference Range Interpretation Comments Urine Clarity (test code = 79407-0) SL CLOUDY CLEAR H [facility] LakeUrine Specific Opuqxtk1905-75-26 19:03:00 * Test Item Value Reference Range Interpretation Comments Urine Specific [place] (test code = 5811-5) 1.010 1.010-1.02 5 [facility] LakeUrine [id number] 19:03:00* Test Item Value Reference Range Interpretation Comments Urine pH (test code = 00334-4) 5.5 5-7 [facility] LakeUrine Leukocyte Qeagacey4779-26-89 19:03:00* Test Item Value Reference Range Interpretation Comments Urine Leukocyte Esterase (test code = 84579-0) NEGATIVE NEGATIV E [facility] LakeUrine Ynxrxdk9929-92-17 19:03:00* Test Item Value Reference Range Interpretation Comments Urine Nitrite (test code = 17028-5) NEGATIVE NEGATIVE [facility] LakeUrine Trzivik1904-56-65 19:03:00* Test Item Value Reference Range Interpretation Comments Urine Protein (test code = 68032-8) NEGATIVE NEGATIVE [facility] LakeUrine Glucose (UA)2019-02-26 19:03:00* Test Item Value Reference Range Interpretation Comments Urine Glucose (UA) (test code = 59187-9) 3+ NEGATIVE [facility] LakeUrine Kcnbsqb3024-74-82 19:03:00* Test Item Value Reference Range Interpretation Comments Urine Ketones (test code = 58000-4) 2+ NEGATIVE H [facility] LakeUrine Bjrfuffnfnhh0243-49-49 19:03:00* Test Item Value Reference Range Interpretation Comments Urine Urobilinogen (test code = 30742-1) 0.2 0.2-1 [facility] LakeUrine Qqsvcbffz9517-38-05 19:03:00* Test Item Value Reference Range Interpretation Comments Urine Bilirubin (test code = 1977-8) NEGATIVE NEGATIVE [facility] LakeUrine Hmvrq0108-70-48 19:03:00* Test Item Value Reference Range Interpretation Comments Urine Blood (test code = 11827-9) NEGATIVE NEGATIVE [facility] LakeCHEST SINGLE (NOT PORTABLE)2019-02-26 18:49:00 [place] [address] Patient Name: NATALIIA GALDAMEZ I MR #: [id number] : 1950 Age/Sex: 68/M Req #: [id number] Adm Physician: Ordered by: ROBERT MUNOZ MD Report #: [id number] Location: ER Room/Bed: Procedure: [id number] DX/C HEST SINGLE (NOT PORTABLE) Exam Date: 02/26/19 Exam Time: 1839 REPORT STATUS: Signed Examination: Single AP view of the chest. COMPARISON: None. INDICATIO N: Chest pain DISCUSSION: Lines/tubes: None. Lungs: The vikram ngs are well inflated and clear. No pneumonia or pulmonary edema. Pleura: No pleural effusion or pneumothorax. Heart and mediastinum: The heart and the mediastinum are unremarkable. Bones and soft tissues: No acute bony ab normalities. IMPRESSION: 1. No acute cardiopulmonary abnormalitie s. Signed by: Dr. Nicole Liu M.D. on 02/26/2019 6:49 PM Dictated By: NICOLE LIU MD 46 COPY TO: JALEN MUNOZ MD
== END 2020-03-24 14:30 | disposition home or self-care (01) ==
LOC: FSED 14:22
DX: S61.212A Laceration without foreign body of right middle finger without damage to nail, initial encounter (principal); W29.8XXA Contact with other powered hand tools and household machinery, initial encounter; Y92.008 Other place in unspecified non-institutional (private) residence as the place of occurrence of the external cause; E03.9 Hypothyroidism, unspecified; J45.909 Unspecified asthma, uncomplicated; Z86.718 Personal history of other venous thrombosis and embolism; M54.9 Dorsalgia, unspecified; G89.29 Other chronic pain
CPT/HCPCS: 99284